=== PATIENT | female | born 1945 | race Caucasian/White ===

== ENCOUNTER 2019-04-13 11:58 | Observation (INO) | payer OTHER ==
[~2019-04-13] VITALS: Ht 160 cm; Wt 71.0 kg
[2019-04-13 12:36] LABS: HEMATOCRIT 43.6 % (37.0-47.0); HEMOGLOBIN 13.8 g/dl (12.0-16.0); IMMATURE GRANULOCYTES 0.3 % (0.0-5.0); MEAN CORPUSCULAR HGB 28.2 pG CALC (26.0-32.0); MEAN CORPUSCULAR HGB CONC 31.7 g/L CALC (32.0-36.0); NEUT# 1.82 thou/uL (2.00-7.15); RED BLOOD COUNT 4.9 mill/uL (4.20-5.60); RED CELL DISTRI WIDTH 13.4 % (11.5-15.5)
[2019-04-13 12:59] LABS: ALBUMIN 4.5 g/dL (3.2-5.0); BILIRUBIN, TOTAL 0.5 mg/dL (0.0-1.4); CREATININE 1.2 mg/dL (0.5-1.0); POTASSIUM 4.1 mmol/l (3.5-5.1); TOTAL PROTEIN 8.2 g/dL (6.3-8.2)
[2019-04-13 14:00] LABS: D-DIMER 0.71 mg/L (0.19-0.60); PROTHROMBIN TIME 10.7 SECONDS (9.0-12.5)
[2019-04-13] MEDS ORDERED: PROAIR HFA108 MCG/AC IN (16:54)
[2019-04-13] MEDS ORDERED: SYNTHROID112 MCG PO (16:59)
[2019-04-13] MEDS ORDERED: ZOPICLONE PO (16:59)
[2019-04-13] MEDS ORDERED: TOVIAZ4 MG PO (17:01)
[2019-04-13] MEDS ORDERED: METFORMIN500 MG PO (17:02)
[2019-04-13] MEDS ORDERED: BINOSTO70 MG PO (17:04)
[2019-04-13] MEDS ORDERED: BISOPROL FUM5 MG PO (17:05)
[2019-04-13] MEDS ORDERED: HYDROCHLOROTH12.5 MG PO (17:06)
[2019-04-13] MEDS ORDERED: ABILIFY MYCITE2 MG PO (17:08)
[2019-04-13] MEDS ORDERED: SINGULAIR10 MG PO (17:09)
[2019-04-13] MEDS ORDERED: TRAZODONE50 MG PO (17:10)
[2019-04-13] MEDS ORDERED: DULOXETINE HYDR30 MG PO (17:12)
[2019-04-13] MEDS ORDERED: LYRICA50 MG PO (17:13)
[2019-04-13] MEDS ORDERED: APAP/TRAMADL1 TAB PO (17:16)
[2019-04-13] MEDS ORDERED: NITROGLYCERIN0.4 MG PO (17:22)
[2019-04-13] MEDS ORDERED: PAIN & FEVER325 MG PO (17:23)
[2019-04-13] MEDS ORDERED: ATORVASTATIN CA20 MG PO (17:24)
[2019-04-13] MEDS ORDERED: MIRALAX3350 NF PO (17:25)
[2019-04-13] MEDS ORDERED: BISACODYL10 M1 RE (17:26)
[2019-04-13] MEDS ORDERED: GLYCERIN RE (17:27)
[2019-04-13] MEDS ORDERED: LO-DOSE ASA81 MG PO (17:29)
[2019-04-13] MEDS ORDERED: NITROGLYCER0.6 MG/H1 TD (17:29)
[2019-04-13] MEDS ORDERED: CVS SENNA8.6 MG PO (17:31)
[2019-04-13 18:02] VITALS: BP 136/57
[2019-04-13 19:00] VITALS: BP 100/60
[2019-04-13 21:42] LABS: URINE BILIRUBIN - DIPSTICK NEGATIVE (NEGATIVE); URINE BLOOD DIPSTICK NEGATIVE (NEGATIVE); URINE GLUCOSE - DIPSTICK NEGATIVE (NEGATIVE); URINE KETONE NEGATIVE (NEGATIVE); URINE LEUK ESTERASE NEGATIVE (Negative); URINE NITRITE - DIPSTICK POSITIVE (Negative); URINE PH 5.5 (4.5-8.0); URINE PROTEIN - DIPSTICK 100 mg/dL (NEG-TRACE); URINE UROBILINOGEN - DIPSTICK 0.2 E.U./dL (0.2)
[2019-04-13 21:43] LABS: URINE CLARITY HAZY; URINE COLOR DK. YELLOW
[2019-04-13 21:57] LABS: URINE RBC 0-2 RBC/hpf (0-5); URINE SQUAMOUS EPITHELIAL CELL FEW EPI/hpf (0-FEW)
[2019-04-14 00:17] VITALS: BP 108/61
[2019-04-14 04:00] VITALS: BP 107/54
[2019-04-14 08:13] VITALS: BP 118/62
[2019-04-14 11:08] LABS: IMMATURE GRANULOCYTES 0.2 % (0.0-5.0); MEAN CELL VOLUME 88.3 fL CALC (80.0-100.0); MEAN CORPUSCULAR HGB 28.8 pG CALC (26.0-32.0); MEAN CORPUSCULAR HGB CONC 32.6 g/L CALC (32.0-36.0); NEUT# 3.6 thou/uL (2.00-7.15); RED BLOOD COUNT 4.1 mill/uL (4.20-5.60); RED CELL DISTRI WIDTH 13.4 % (11.5-15.5)
[2019-04-14 11:10] LABS: HEMATOCRIT 36.2 % (37.0-47.0); HEMOGLOBIN 11.8 g/dl (12.0-16.0)
[2019-04-14 11:20] VITALS: BP 119/52
[2019-04-14 11:33] LABS: ANION GAP 13 (6-22 (CALC)); BUN 26 mg/dL (8-23); BUN/CREATININE RATIO 25 (12-20 (CALC)); CARBON DIOXIDE 25 mmol/l (22-30); CHLORIDE 103 mmol/l (95-108); GFR 54 ML/MIN (>=60 (CALC)); GFR FOR AFR.AMER. > 60 ML/MIN (>=60 (CALC)); POTASSIUM 4.3 mmol/l (3.5-5.1); SODIUM 137 mmol/l (137-146)
[2019-04-14] MEDS ORDERED: VITAMIN D5000 UNIT PO (13:36)
[2019-04-14] MEDS ORDERED: PREDNISONE10 MG PO (13:45)
[2019-04-14] MEDS ORDERED: DOXYCYCL HYC100 MG PO (13:45)
[2019-04-14 18:16] VITALS: BP 110/40
[2019-04-14 20:10] VITALS: BP 113/55
[2019-04-15 04:07] VITALS: BP 127/60
[2019-04-15 04:58] LABS: HEMATOCRIT 35.9 % (37.0-47.0); HEMOGLOBIN 11.4 g/dl (12.0-16.0); IMMATURE GRANULOCYTES 0.3 % (0.0-5.0); MEAN CELL VOLUME 89.8 fL CALC (80.0-100.0); MEAN CORPUSCULAR HGB 28.5 pG CALC (26.0-32.0); MEAN CORPUSCULAR HGB CONC 31.8 g/L CALC (32.0-36.0); NEUT# 6.81 thou/uL (2.00-7.15); RED CELL DISTRI WIDTH 13.8 % (11.5-15.5)
[2019-04-15 05:15] LABS: ANION GAP 12 (6-22 (CALC)); BUN 27 mg/dL (8-23); BUN/CREATININE RATIO 29 (12-20 (CALC)); CARBON DIOXIDE 22 mmol/l (22-30); CHLORIDE 110 mmol/l (95-108); CREATININE 0.9 mg/dL (0.5-1.0); GFR > 60 ML/MIN (>=60 (CALC)); GFR FOR AFR.AMER. > 60 ML/MIN (>=60 (CALC)); POTASSIUM 4.5 mmol/l (3.5-5.1); SODIUM 139 mmol/l (137-146)
[2019-04-15 05:24] LABS: MAGNESIUM 2.6 mg/dL (1.6-2.3)
[2019-04-15 07:40] VITALS: BP 129/56
[2019-04-15 10:30] VITALS: BP 119/54
[2019-04-15] MEDS ORDERED: PROAIR HFA108 MCG/AC IN (15:24)
== END 2019-04-15 15:45 | disposition home or self-care (01) | DRG 202 ==
LOC: ED 11:58 → ED-I 16:44 → ED 17:08 → MS2 17:09
PROVIDERS: Emergency Medicine; Nurse Practitioner Family; ADMIT Internal Medicine; ATTEND Internal Medicine
DX: J45.901 Unspecified asthma with (acute) exacerbation (principal); J96.01 Acute respiratory failure with hypoxia; M48.54XA Collapsed vertebra, not elsewhere classified, thoracic region, initial encounter for fracture; J20.9 Acute bronchitis, unspecified; I10 Essential (primary) hypertension; E11.40 Type 2 diabetes mellitus with diabetic neuropathy, unspecified; E83.42 Hypomagnesemia; E03.9 Hypothyroidism, unspecified; G89.4 Chronic pain syndrome; Z79.84 Long term (current) use of oral hypoglycemic drugs; Z23 Encounter for immunization; Z87.891 Personal history of nicotine dependence; Z85.819 Personal history of malignant neoplasm of unspecified site of lip, oral cavity, and pharynx
CPT/HCPCS: G0378; J1650; J3475; Q9967